=== PATIENT | female | born 1985 | race Caucasian/White ===

== ENCOUNTER 2024-02-17 09:27 | Outpatient (AMB) | payer OTHER, SELFPAY ==
--- NOTE | 2024-02-17 10:07 | MHC.PC.OV ---
Vital Signs 02/17/24 10:13 Height 5 ft 7 in Weight 253 lb BMI 39.6 BP 110/80 Blood Pressure Location Lt brachial Position Sitting Pulse 77 Pulse Source Pulse Oximeter Pulse Oximetry (%) 100 Oxygen Delivery Method Room Air Intake Visit Reasons: NPV- Requesting phy Intake Note: Pt is here today as a new patient to [facility] care and request a PE Is last menstrual period known: Yes Last menstrual period: 01/29/24 Allergies No Known Allergies Allergy (Verified 02/17/24 10:13) Medication List - Last Reconciled 02/17/24 by Cristal Reveles MD iodine ea miscellaneous levocetirizine (Xyzal) 5 mg PO DAILY milk thistle 300 mg PO DAILY Tobacco use date assessed: 02/17/24 Dental Screening Dental Screen Date: 02/17/24 Did you have a dental visit in the last 12 months?: Yes Did you have a dental problem in the last 6 months where you did not have access to dental care?: No Was dental information given to patient?: Patient has dentist HPI NPV- Requesting phy HPI Details 38-year-old lady, new to practice, here to establish care with a new PCP and for physical exam. She has no known medical history, except for seasonal allergies for which she takes Xyzal 5 mg once a day as needed. Her last Pap was in 2019 per patient came back normal. Has history of gallstones, status post cholecystectomy done in [place] in 2009 She has strong family history for breast cancer, sister was diagnosed at age 45 with breast cancer, and maternal aunt and paternal grandmother also had breast cancer. She states that she was tested and came back positive for the BRCA 1 gene. She has been getting yearly mammograms, last 1 was a year ago which came back negative. [facility] Medical History (Updated 02/18/24 @ 01:25 by Cristal Reveles MD) Obesity (BMI 35.0-39.9 without comorbidity) Elevated liver enzymes Family history of breast cancer in first degree relative BRCA1-associated protein-1 tumor predisposition syndrome Cervical cancer screening Myopia Seasonal allergies History of vitamin D deficiency Surgical History (Updated 02/17/24 @ 10:45 by Cristal Reveles MD) Hx laparoscopic cholecystectomy Family History (Updated 02/17/24 @ 10:55 by Cristal Reveles MD) Sister Breast cancer, Onset Age: 45 Maternal Aunt Breast cancer Paternal Grandmother Breast cancer Maternal Grandmother Thyroid cancer Skin cancer Father Thyroid disease Sister Goiter Brother Type 1 diabetes mellitus Brother Type 1 diabetes mellitus Social History Housing: Apartment Patient Tobacco Use Status: Never used Tobacco e-Cigarette/Vaping Use: Never Used service: No Current occupational status: employed Cognitive needs: No Hearing needs: No Vision needs: Yes Female Reproductive History Menstrual Date of last menstrual period: 01/29/24 control method: permanent sterilization Permanent Sterilization: Vasectomy Total pregnancies: 2 Full term: 2 Questionnaire PHQ-9 Over the last 2 weeks, how often have you been bothered by any of the following problems? 1. Little interest or pleasure in doing things: not at all 2. Feeling down, depressed, or hopeless: not at all 3. Trouble falling or staying asleep, or sleeping too much: not at all 4. Feeling tired or having little energy: several days 5. Poor appetite or overeating: not at all 6. Feeling bad about yourself - or that you are a failure or have let yourself or your family down: not at all 7. Trouble concentrating on things, such as reading the newspaper or watching television: not at all 8. Moving or speaking so slowly that other people could have noticed. Or the opposite - being so fidgety or restless that you have been moving around a lot more than usual: not at all 9. Thoughts that you would be better off or of hurting yourself in some way: not at all Total score: 1 Depression Screening Interpretation: Negative Depression Screening Done: Yes 89370 - PHQ-9 Billing: Yes Source: Developed by Drs. Hugo Vargas, Marya Martinez, Tremaine Huffman and colleagues, with an educational sendy from [employer]. Thrive Questionnaire Date Thrive assessed: 02/17/24 I am a: Patient What is your living situation today?: I have a steady place to live Within the past 12 months, did the food you bought not last and you didn't have the money to get more?: Never true Within the past 12 months, did you worry whether your food would run out before you got money to buy more?: Never true Do you have trouble paying for medicines?: No Do you have trouble getting transportation to medical appointments?: No Do you have trouble paying your heating and electricity bill?: No Do you have trouble taking care of your child, family member or friend?: No Do you have trouble with day-to-day activities such as bathing, preparing meals, shopping, managing finances, etc.?: No Are you currently unemployed and looking for a job?: No Are you interested in more education?: No THRIVE Score: 0 AUDIT C Alcohol Use Questionnaire (AUDIT-C) 1. How often do you have a drink containing alcohol?: Never 3. How often do you have six or more drinks on one occasion?: Never Total Score: 0 LENNOX-7 AMB Questionnaire LENNOX-7 Date LENNOX - 7 assessed: 02/17/24 Feeling nervous, anxious, or on edge: 0 = Not at all Not being able to stop or control worryin = Not at all Worrying too much about different things: 0 = Not at all Trouble relaxin = Not at all Being so restless that it is hard to sit still: 0 = Not at all Becoming easily annoyed or irritable: 0 = Not at all Feeling afraid as if something awful might happen: 0 = Not at all Total LENNOX-7 score (0-4 normal; 5-9 mild; 10-14 moderate; 15-21 severe): 0 Source: Developed by Drs. Hugo Vargas, Marya Martinez, Tremaine Huffman and colleagues, with an educational sendy from [employer]. LENNOX-7 Assessment Billing LENNOX-7 Assessment Tool: LENNOX-7 Assessment 43994 Review of Systems Const Denies body aches, Denies fatigue, Denies fever(s), Denies headache(s) and Denies weakness Eyes Denies change in vision and Reports requires corrective lenses ENT Denies dizziness, Denies headache(s), Denies nasal congestion, Denies nasal discharge and Denies sore throat Card Denies chest pain, Denies lightheadedness, Denies palpitations and Denies dyspnea Resp Denies chest congestion, Denies cough, Denies dyspnea and Denies wheezing GI Denies abdominal pain, Denies change in bowel habits and Denies heartburn Denies hematuria, Denies urinary frequency, Denies dysuria and Denies urinary urgency Musc Reports no additional complaints Skin/Breast Denies breast pain, Denies breast mass, Denies lesions and Denies rash Neuro Denies dizziness, Denies headache(s) and Denies weakness Psych Reports no additional complaints Endo Denies fatigue, Denies polydipsia, Denies polyuria and Denies palpitations Kraig/Lymph Denies easy bruising Aller/Immun Denies seasonal rhinorrhea and Denies wheezing Physical exam (Primary Care) Vital Signs: Last Vital Signs Pulse 77 02/17/24 10:13 BP 110/80 02/17/24 10:13 Pulse Ox 100 02/17/24 10:13 Oxygen Delivery Method Room Air 02/17/24 10:13 BMI result Body Mass Index 39.6 Tobacco/Smoking Status: Tobacco use Status Tobacco use date assessed 02/17/24 02/17/24 10:18 Patient Tobacco Use Status Never used Tobacco 02/17/24 10:18 e-Cigarette/Vaping Use Never Used 02/17/24 10:18 PHQ-9: PHQ-9 Score PHQ-9: Total score 1 02/17/24 10:46 Depression Screening Interpretation: Negative Thrive Assessment: Date of Thrive Assessment Date Thrive assessed 02/17/24 02/17/24 10:27 Const General: no acute distress and alert Nutritional Appearance: obese Orientation/consciousness: patient oriented x3 HENMT Head: Yes normocephalic and Yes atraumatic Ears: external ears normal, TM's normal bilaterally and EAC's normal General nose exam: Normal external nose present and No nasal discharge present Face and sinus: Yes face symmetric Mouth: Normal oral and palatal mucosa present, lip normal, tongue normal, oropharynx normal and moist mucous membranes Eyes General: appearance normal, both eyes and all related structures Eyelids: Yes eyelids normal Conjunctivae: conjunctivae normal Sclerae: sclerae normal Pupils: Equal, round and reactive pupils present EOM: EOMs intact bilaterally Neck Neck: Yes full ROM, Yes no lymphadenopathy and Yes supple Thyroid: Thyroid normal Chest Chest palpation & inspection: normal inspection of the chest Breast/axilla inspection: normal inspection of the breasts Breast/axilla palpation: normal palpation of the breasts Resp Effort & Inspection: normal respiratory effort and able to speak in complete sentences Auscultation: clear to auscultation bilaterally Cardio Rate: regular rate Rhythm: regular rhythm Heart sounds: S1 normal heart sound present and S2 normal heart sound present GI Palpation (GI): Soft to palpation, nontender, no guarding and no masses Auscultation: normal bowel sounds General: Yes no CVA tenderness Back/Spine/Pelvis Back: no CVA tenderness and No back tenderness Skin General skin exam: no rashes or lesions noted Neuro General: patient oriented x3, gait normal, moves all extremities, Normal light touch and pain sensation, no focal motor deficits and CN's II-XI intact bilaterally Cranial nerves: Yes Equal, round and reactive pupils present Cognition (Neuro): normal cognition Gait exam (Neuro): Normal gait present Motor exam (neuro): 5/5 motor strength present throughout Extrem General: Yes normal to inspection, Yes full ROM, Yes no joint enlargement, Yes no pedal edema and Yes normal gait Psych Appearance: grossly normal and well kempt Mental Status: mental status grossly normal Speech and movement: Normal speech and movement present Affect: normal affect Attitude: cooperative Thought process: Normal thought process present Thought content: Normal thought content present Assessment and Plan Assessment & Plan (1) Annual visit for general adult medical examination with abnormal findings: Code(s): Z00.01 - Encounter for general adult medical examination with abnormal findings Plan: Will check appropriate labs. Recommended dental visit every 6 months and regular eye exams, at least every 2 years, currently sees Dr. Oneal. Take adequate calcium in diet and vitamin-D 3 at 2000 IU per cap once a day, in addition to weight-bearing exercises to help maintain good muscle tone and weight control. Instructed to do self-breast exam, and and ordered screening mammogram, has patient has strong family history for breast cancer and is BRCA 1 positive pain.. Up-to-date with her vaccines (2) History of vitamin D deficiency: Code(s): Z86.39 - Personal history of other endocrine, nutritional and metabolic disease Plan: Will check vitamin-D level (3) Seasonal allergies: Code(s): J30.2 - Other seasonal allergic rhinitis Plan: Currently taking Xyzal 5 mg 1 tablet daily as needed for seasonal allergies (4) Myopia: Comment: Sees Dr. Oneal Code(s): H52.10 - Myopia, unspecified eye Qualifiers: Laterality: bilateral Qualified Code(s): H52.13 - Myopia, bilateral Plan: Currently followed by Dr. Oneal (5) Cervical cancer screening: Code(s): Z12.4 - Encounter for screening for malignant neoplasm of cervix Plan: Referred to [facility] for her routine Pap and pelvic exam (6) BRCA1-associated protein-1 tumor predisposition syndrome: Code(s): Z15.01 - Genetic susceptibility to malignant neoplasm of breast; Z15.02 - Genetic susceptibility to malignant neoplasm of ovary; Z15.09 - Genetic susceptibility to other malignant neoplasm Plan: Screening mammogram ordered, referral to Oncology for further testing (7) Family history of breast cancer in first degree relative: Code(s): Z80.3 - Family history of malignant neoplasm of breast (8) Elevated liver enzymes: Code(s): R74.8 - Abnormal levels of other serum enzymes Plan: Ordered a comprehensive metabolic panel, currently taking milk thistle (9) Obesity (BMI 35.0-39.9 without comorbidity): Code(s): E66.9 - Obesity, unspecified Plan: Discussed need to increase activity and weight reduction. Mediterranean diet is a healthy diet that helps, limit food high in fat, sugar, and calories. Eat slowly, pay attention to portion sizes, plan your meals ahead of time, start regular physical activity, at least 150 minutes of moderate intensity exercise, or 90 minutes per week of vigorous exercise. Keeping a food diary, tracking what you eat and your physical activity can help assess what improvements you can make. There are many health problems associated with being overweight/obese, so it is important to improve your diet and exercise. Orders: Orders Complete Blood Count Auto Diff 02/17/24 J30.2 - Other seasonal allergic rhinitis, R74.8 - Abnormal levels of other serum enzymes, Z15.01 - Genetic susceptibility to malignant neoplasm of breast, Z15.02 - Genetic susceptibility to malignant neoplasm of ovary, Z15.09 - Genetic susceptibility to other malignant neoplasm, Z80.3 - Family history of malignant neoplasm of breast, Z86.39 - Personal history of other endocrine, nutritional and metabolic disease Lipid Panel 02/17/24 J30.2 - Other seasonal allergic rhinitis, R74.8 - Abnormal levels of other serum enzymes, Z15.01 - Genetic susceptibility to malignant neoplasm of breast, Z15.02 - Genetic susceptibility to malignant neoplasm of ovary, Z15.09 - Genetic susceptibility to other malignant neoplasm, Z80.3 - Family history of malignant neoplasm of breast, Z86.39 - Personal history of other endocrine, nutritional and metabolic disease Vitamin D 25-OH Total 02/17/24 J30.2 - Other seasonal allergic rhinitis, R74.8 - Abnormal levels of other serum enzymes, Z15.01 - Genetic susceptibility to malignant neoplasm of breast, Z15.02 - Genetic susceptibility to malignant neoplasm of ovary, Z15.09 - Genetic susceptibility to other malignant neoplasm, Z80.3 - Family history of malignant neoplasm of breast, Z86.39 - Personal history of other endocrine, nutritional and metabolic disease TSH reflex Free T4 02/17/24 J30.2 - Other seasonal allergic rhinitis, R74.8 - Abnormal levels of other serum enzymes, Z15.01 - Genetic susceptibility to malignant neoplasm of breast, Z15.02 - Genetic susceptibility to malignant neoplasm of ovary, Z15.09 - Genetic susceptibility to other malignant neoplasm, Z80.3 - Family history of malignant neoplasm of breast, Z86.39 - Personal history of other endocrine, nutritional and metabolic disease Comprehensive Mary D. Panel Fast 02/17/24 J30.2 - Other seasonal allergic rhinitis, R74.8 - Abnormal levels of other serum enzymes, Z15.01 - Genetic susceptibility to malignant neoplasm of breast, Z15.02 - Genetic susceptibility to malignant neoplasm of ovary, Z15.09 - Genetic susceptibility to other malignant neoplasm, Z80.3 - Family history of malignant neoplasm of breast, Z86.39 - Personal history of other endocrine, nutritional and metabolic disease Referrals [facility] Referral Z00.01 - Encounter for general adult medical examination with abnormal findings, Z12.4 - Encounter for screening for malignant neoplasm of cervix, Z15.01 - Genetic susceptibility to malignant neoplasm of breast, Z15.02 - Genetic susceptibility to malignant neoplasm of ovary, Z15.09 - Genetic susceptibility to other malignant neoplasm Hematology & Oncology Referral Z15.01 - Genetic susceptibility to malignant neoplasm of breast, Z15.02 - Genetic susceptibility to malignant neoplasm of ovary, Z15.09 - Genetic susceptibility to other malignant neoplasm, Z80.3 - Family history of malignant neoplasm of breast Coding Level of Care Code New Pt Prev Care 18-39yr([id number] Diagnoses Annual visit for general adult medical examination with abnormal findings Z00.01 History of vitamin D deficiency Z86.39 Seasonal allergies J30.2 Myopia of both eyes H52.13 Laterality: bilateral Cervical cancer screening Z12.4 BRCA1-associated protein-1 tumor predisposition syndrome Z15.01; Z15.02; Z15.09 Family history of breast cancer in first degree relative Z80.3 Elevated liver enzymes R74.8 Obesity (BMI 35.0-39.9 without comorbidity) E66.9 Additional Codes LENNOX-7 Assessment Billing - LENNOX-7 Assessment Tool: LENNOX-7 Assessment [id number] ([id number])
[2024-02-17 10:13] VITALS: BP 110/80; PULSE 77; O2SAT 100; BMI 39.6
== END 2024-02-17 11:09 | disposition home or self-care (01) ==
PROVIDERS: PCP Internal Medicine; Visit Provider Internal Medicine
DX: Z00.00 Encounter for general adult medical examination without abnormal findings (principal); Z86.39 Personal history of other endocrine, nutritional and metabolic disease; E66.9 Obesity, unspecified; Z68.39 Body mass index [BMI] 39.0-39.9, adult; J30.2 Other seasonal allergic rhinitis; H52.13 Myopia, bilateral; Z15.01 Genetic susceptibility to malignant neoplasm of breast; Z15.02 Genetic susceptibility to malignant neoplasm of ovary; Z15.09 Genetic susceptibility to other malignant neoplasm; Z80.3 Family history of malignant neoplasm of breast; R74.8 Abnormal levels of other serum enzymes
CPT/HCPCS: 99385

== ENCOUNTER 2024-02-18 08:39 | Outpatient (REF) | payer OTHER, SELFPAY ==
[2024-02-18 10:11] LABS: MANUAL DIFF FLAG NO
[2024-02-18 10:26] LABS: Basophils Absolute Auto 0.1 X10*3/uL (0.0-0.2); Eosinophils Absolute Auto 0.3 X10*3/uL (0.0-0.4); Eosinophils Percent Auto 4.1 % (0-4); Hematocrit 40.1 % (37.0-47.0); Imm Gran Abs Auto 0.02 X10*3/uL (0.00-0.03); Imm Gran Pct Auto 0.3 % (0.0-0.4); Lymphocytes Absolute Auto 1.8 X10*3/uL (1.2-4.9); Lymphocytes Percent Auto 26.5 % (20-40); Mean Corpuscular HGB Conc 32.4 g/dl (31.0-35.0); Mean Corpuscular Hemoglobin 28.6 pg (27.0-33.0); Mean Corpuscular Volume 88.1 fL (80.0-98.0); Mean Platelet Volume 10.7 fL (9.4-12.3); Monocytes Absolute Auto 0.6 X10*3/uL (0.1-1.2); Monocytes Percent Auto 8.4 % (2-11); Neutrophils Absolute Auto 4.1 x10*3/uL (2.0-8.3); Neutrophils Percent Auto 59.7 % (45-73); Platelet Count 335 X10*3/uL (160-400); Red Blood Count 4.55 X10*6/uL (4.20-5.50); Red Cell Distribution Width 14.2 % (11.0-16.0); White Blood Count 6.9 X10*3/uL (4.8-10.8)
[2024-02-18 11:20] LABS: Alanine Aminotransferase 21 U/L (0-31); Albumin Level 3.6 g/dL (3.5-5.0); Alkaline Phosphatase 61 U/L (39-117); Anion Gap 10 (12-20); Aspartate Amino Transferase 14 U/L (5-31); Bilirubin Total 0.6 mg/dL (0.0-1.0); Blood Urea Nitrogen 9 mg/dL (9-16); Calcium 9.1 mg/dL (8.4-10.2); Carbon Dioxide 24 mmol/L (22-29); Chloride 109 mmol/L (96-108); Cholesterol 153 mg/dL (<200); Estimated Glomerular Filt Rate > 60; Glucose Fasting 86 mg/dL (60-99); HDL Cholesterol 53 mg/dL (>40); LDL Cholesterol Calculated 87 mg/dL (<100); Potassium 4.3 mmol/L (3.3-5.1); Sodium 139 mmol/L (135-145); TSH reflex Free T4 2.15 uIU/mL (0.32-4.0); Total Protein 7.1 g/dL (6.5-8.0); Triglycerides 69 mg/dL (<150)
== END 2024-02-18 08:40 | disposition home or self-care (01) ==
LOC: HO.HMGCLDS 08:39
PROVIDERS: PCP Internal Medicine; Visit Provider Internal Medicine
DX: R74.8 Abnormal levels of other serum enzymes (principal); J30.2 Other seasonal allergic rhinitis; Z86.39 Personal history of other endocrine, nutritional and metabolic disease; Z80.3 Family history of malignant neoplasm of breast; Z15.01 Genetic susceptibility to malignant neoplasm of breast; Z15.02 Genetic susceptibility to malignant neoplasm of ovary; Z15.09 Genetic susceptibility to other malignant neoplasm
CPT/HCPCS: 36415; 80053; 80061; 82306; 84443; 85025

== ENCOUNTER 2024-03-23 09:01 | Outpatient (REF) | payer OTHER, SELFPAY ==
[2024-03-26 07:39] LABS: TS Negative Control Passed; TS Panel A 1; TS Panel B 2; TS Positive Control Passed; TSpotTB Negative (Negative)
== END 2024-03-23 09:02 | disposition home or self-care (01) ==
LOC: HO.HMGCLDS 09:01
PROVIDERS: PCP Internal Medicine; Visit Provider Internal Medicine
DX: Z11.1 Encounter for screening for respiratory tuberculosis (principal)
CPT/HCPCS: 36415; 86481

== ENCOUNTER 2024-06-01 10:22 | Outpatient (AMB) | payer OTHER, SELFPAY ==
--- NOTE | 2024-06-01 10:24 | MHC.OFFVIS ---
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 She used to go to [facility] in [place] but they closed. She is 100% certain that she had her negative Pap smear with negative HPV 2 years ago in 2021 around that time she also got tested for the BRCA1 gene and found out that she is positive she had that done because her sister who is 45 years old at the time was diagnosed with breast cancer though she was BRCA negative. She has an appointment tomorrow at [facility] for a alvarez discussion about options and further screening though she has been getting her yearly mammograms and they have been normal she says on the last mammogram they told her her breasts were fatty not dense. She has absolutely no worries about STDs and declines all testing her has a vasectomy so she does not need control she gets regular periods and they are little crampy but nothing too bad and she does not keep track exactly to the date but they come every month. She walks for exercise she has 2 children ages 7 and 11 both delivered vaginally 1 at [facility] and 1 at [facility]. 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, [facility] Medical History (Updated 06/01/24 @ 11:28 by Sherley Davis CNM) Obesity (BMI 35.0-39.9 without comorbidity) Elevated liver enzymes Family history of breast cancer in first degree relative BRCA1-associated protein-1 tumor predisposition syndrome Cervical cancer screening Myopia Seasonal allergies History of vitamin D deficiency Surgical History Hx laparoscopic cholecystectomy Family History Sister Breast cancer, Onset Age: 45 Maternal Aunt Breast cancer Paternal Grandmother Breast cancer Maternal Grandmother Thyroid cancer Skin cancer Father Thyroid disease Sister Goiter Brother Type 1 diabetes mellitus Brother Type 1 diabetes mellitus Social History Housing: Apartment Patient Tobacco Use Status: Never used Tobacco e-Cigarette/Vaping Use: Never Used service: No Current occupational status: employed Cognitive needs: No Hearing needs: No Vision needs: Yes Female Reproductive History Menstrual Age of Menarche: 13 Duration of menses: 3-5 days Date of last menstrual period: 05/11/24 control method: none and other (vasectomy) Total pregnancies: 2 Full term: 2 Date of last pap smear: 12/11/21 (negative(per patient)) History of abnormal pap smear: No Physical Exam Vital Signs: Last Vital Signs BP 118/80 06/01/24 10:28 BMI result Body Mass Index 39.6 Const General: healthy appearing, comfortable, no acute distress, well developed and alert Nutritional Appearance: average body habitus Orientation/consciousness: patient oriented x3 Limitations: no limitations HEENT Head: Yes normocephalic Neck Neck: Yes normal visual inspection Thyroid: Thyroid normal Chest Other: Breasts are large and pendulous no masses palpated no skin dimpling no peau d'orange. Chest palpation & inspection: normal inspection of the chest Breast/axilla inspection: normal inspection of the breasts and normal inspection of the axillae Breast/axilla palpation: normal palpation of the breasts and normal palpation of the axillae Resp Effort & Inspection: normal respiratory effort GI Inspection: Yes normal to inspection, No Abdominal wall edema and No distended Palpation (GI): Soft to palpation and nontender Other: External exam within normal limits vagina pink and moist multiparous cervix pink moist smooth very healthy appearing mucus uterus is small anteverted mobile nontender adnexa nontender not enlarged fair tone with Kegel explained Kegel's quite in some detail and urged doing them several times a day and discussed rationale and issues that contribute to weakening of muscle. General: Yes bladder normal to palpation External Female Exam: normal external appearance and normal appearance of the urethra Speculum Exam - Vagina: normal appearance of the vagina, normal palpation and normal vaginal discharge Speculum Exam - Cervix: normal appearance of the cervix, normal palpation and nontender Bimanual exam- vagina & uterus: normal bimanual exam, normal palpation, uterine size normal, bladder normal to palpation, consistency normal, normal palpation, uterine mobility normal, uterine shape normal, No Cervical tenderness present, non-tender and no cervical motion tenderness Bimanual Exam- Adnexa, other: normal adnexae, no masses, normal and No adnexal tenderness Neuro General: patient oriented x3 Assessment & Plan Assessment & Plan (1) Obesity (BMI 35.0-39.9 without comorbidity): Code(s): E66.9 - Obesity, unspecified Category: Medical (2) Family history of breast cancer in first degree relative: Code(s): Z80.3 - Family history of malignant neoplasm of breast Category: Medical (3) BRCA1-associated protein-1 tumor predisposition syndrome: Code(s): Z15.01 - Genetic susceptibility to malignant neoplasm of breast; Z15.02 - Genetic susceptibility to malignant neoplasm of ovary; Z15.09 - Genetic susceptibility to other malignant neoplasm Category: Medical (4) Cervical cancer screening: Comment: Patient is 100% sure she had negative Pap with negative HPV in 2021 and has access to the results on her phone. Code(s): Z12.4 - Encounter for screening for malignant neoplasm of cervix Category: Medical Plan -----Discussed in this visit the following: healthy balanced diet, regular and consistent exercise, getting recommended health screens, doing the best she can for her particular health concerns, kegel exercises, pap smear screening and followup recommendations, mammography screening and SBE, normal changes in cycles in her life stage--- .---I Had the patient and demonstrate a Kegel contraction at the end of the exam, ordered in order to explain a Kegel exercise, and instructed the patient on doing the same exercises several times a day with increasing strength each time. One useful to is to imagine pursestring around the vagina and pulling it tight and upwards as if raising the vagina, or imagining that her tight muscles are on the 1st floor and she is trying to pull them up to the 5th floor and then slowly letting them go down. To try to do these several times a day but focus on the quality and the strength of the exercises more than the quantity, and tried isolate just those muscles and not involve other body parts. She will be having a full discussion at [facility] [place] next week or tomorrow, about her positive brca 1 gene and what other screening would be recommended for her. She is probably going to bring her sister with her ( who had the breast cancer). Coding Level of Care Code New Pt Prev Care 18-39yr([id number] Diagnoses Obesity (BMI 35.0-39.9 without comorbidity) E66.9 Family history of breast cancer in first degree relative Z80.3 BRCA1-associated protein-1 tumor predisposition syndrome Z15.01; Z15.02; Z15.09 Cervical cancer screening Z12.4
[2024-06-01 10:28] VITALS: BP 118/80; BMI 39.6
== END 2024-06-01 11:22 | disposition home or self-care (01) ==
LOC: HO.HWSM 10:22
PROVIDERS: PCP Internal Medicine; Visit Provider Advanced Practice Midwife
DX: Z01.419 Encounter for gynecological examination (general) (routine) without abnormal findings (principal); E66.9 Obesity, unspecified; Z80.3 Family history of malignant neoplasm of breast
CPT/HCPCS: 99385

== ENCOUNTER → 2024-06-01 10:22 | Outpatient (BNVA) | payer OTHER, SELFPAY | PROVIDERS: PCP Internal Medicine; Visit Provider Advanced Practice Midwife | DX: Z12.4 Encounter for screening for malignant neoplasm of cervix (principal); E66.9 Obesity, unspecified; Z68.39 Body mass index [BMI] 39.0-39.9, adult; Z80.3 Family history of malignant neoplasm of breast; Z15.01 Genetic susceptibility to malignant neoplasm of breast; Z15.02 Genetic susceptibility to malignant neoplasm of ovary | CPT/HCPCS: 99385 ==

== ENCOUNTER 2025-03-02 08:18 | Outpatient (AMB) | payer OTHER, SELFPAY ==
--- OUTSIDE RECORDS SUMMARY | 2025-03-02 08:36 | XMS_ITS | Patient Health Record ---
[facility] Organization [facility] Address [address] [place] [address] [phone] Support Name Relationship Address Phone Brinda Stoddard Guarantor Unknown Unavailable REASON FOR REFERRAL No Information PLAN OF TREATMENT No Information Insurance Providers Payer Name Payer Address Payer Phone Subscriber Number Group Number Insured Name Patient Relationship to Insured Coverage Start Date Coverage End Date [facility] [address] [place], [place] [id number] Brinda Stoddard Self - patient is the insured 1
--- OUTSIDE RECORDS SUMMARY | 2025-03-02 08:36 | XMS_ITS | Clinical Summary ---
Author Organization [facility] [place] [address] Care Team Providers Care Fire Protection Engineering Technician Name Role Phone Cam Harvey MD Primary Care Provider [phone] Social History Tobacco Use Types Packs/Day Years Used Date Smoking Tobacco: Never Assessed Comments Unknown Sex and Gender Information Value Date Recorded Sex Assigned at Not on file Legal Sex Female 12:11 PM EST Gender Identity Not on file Sexual Orientation Not on file Plan of Treatment Health Maintenance Due Date Last Done Comments Hepatitis B Vaccines (1 of 3 - 19+ 3-dose series) 2005 Cervical Cancer Screening: P ap Smear 2007 Depression Screening 10/07/2022 HIV Screening 10/07/2022 Hepatitis C Screening 10/07/2022 Social Influencers of Health Screening 10/07/2022 COVID-19 Vaccine (2023-2 5 season) 2024 Influenza Vaccine (Season Ended) 2025 08/01/20 16 DTaP,Tdap,and Td Vaccines (2 - Td or Tdap) 01/15/2027 01/15/2017 HIB Vaccines Aged Out No longer eligi ble based on patient's age to complete this topic HPV Vaccines Aged Out No longer eligi ble based on patient's age to complete this topic Hepatitis A Vaccines Aged Out No long er eligible based on patient's age to complete this topic IPV Vaccines Aged Out No longer eligi ble based on patient's age to complete this topic MMR Vaccines Aged Out No longer eligi ble based on patient's age to complete this topic Meningococcal ACWY Vaccine Aged Out N o longer eligible based on patient's age to complete this topic Meningococcal B Vaccine Aged Out No l onger eligible based on patient's age to complete this topic Pneumococcal Vaccine: Pediat rics (0 to 5 Years) and At-Risk Patients (6 to 64 Years) Aged Out No longer eligi ble based on patient's age to complete this topic RSV Immunization Patients Un abdirahman 20 months Aged Out No longer eligible b ased on patient's age to complete this topic Varicella Vaccines Aged Out No longer eligible based on patient's age to complete this topic Care Teams Fire Protection Engineering Technician Relationship Specialty Start Date End Date Cam Harvey MD [address] [place] [address] [address] [place] PCP - General Internal Medicine 08/28/16
--- NOTE | 2025-03-02 08:44 | A.OFFPC_ITS ---
Vital Signs 03/02/25 08:49 Height 5 ft 7 in Weight 258 lb BMI 40.4 BP 114/72 Blood Pressure Location Rt brachial Position Sitting Respiration 16 Pulse 67 Pulse Source Pulse Oximeter Temp 98.3 F Temp Source Oral Pulse Oximetry (%) 100 Oxygen Delivery Method Room Air Intake Visit Reasons: Annual PE Intake Note: Pt is here today for her PE: Is last menstrual period known: Yes Last menstrual period: 02/17/25 Allergies No Known Allergies Allergy (Verified 03/05/25 03:28) Medication List - Last Reconciled 03/05/25 by Cristal Reveles MD cholecalciferol (vitamin D3) 10 mcg PO DAILY levocetirizine (Xyzal) 5 mg PO DAILY Tobacco use date assessed: 03/02/25 Dental Screening Dental Screen Date: 03/02/25 Did you have a dental visit in the last 12 months?: Yes Did you have a dental problem in the last 6 months where you did not have access to dental care?: No Was dental information given to patient?: Patient has dentist HPI Annual PE HPI Details 31-year-old lady with history of positiv e BRCA1 gene, with strong family history for breast cancer,, has seasonal allergies,, here today for physical exam. She is currently being followed by medical oncology clinic at [facility] and was supposed to get an MRI last October in a mammogram for March of this year but patient states that have been rescheduling her appointments. She was seen by [facility] for her routine Pap and pelvic exam last year, and was referred to Gynecologic Oncology to discuss bilateral salpingo-oophorectomy, and advised yearly dermatologic screening for melanoma. She has been staying active, exercises regularly at least 2 to 3 times a week and has been following a healthy diet. [facility] Medical History (Updated 03/02/25 @ 17:43 by Cristal Reveles MD) Obesity (BMI 35.0-39.9 without comorbidity) Elevated liver enzymes Family history of breast cancer in first degree relative BRCA1-associated protein-1 tumor predisposition syndrome Cervical cancer screening Myopia Seasonal allergies History of vitamin D deficiency Surgical History Hx laparoscopic cholecystectomy Family History Sister Breast cancer, Onset Age: 45 Maternal Aunt Breast cancer Paternal Grandmother Breast cancer Maternal Grandmother Thyroid cancer Skin cancer Father Thyroid disease Sister Goiter Brother Type 1 diabetes mellitus Brother Type 1 diabetes mellitus Social History Housing: Apartment Patient Tobacco Use Status: Never used Tobacco e-Cigarette/Vaping Use: Never Used service: No Current occupational status: employed Cognitive needs: No Hearing needs: No Vision needs: Yes Female Reproductive History Menstrual Age of Menarche: 13 Date of last menstrual period: 02/17/25 Questionnaire PHQ-9 Over the last 2 weeks, how often have you been bothered by any of the following problems? 1. Little interest or pleasure in doing things: not at all 2. Feeling down, depressed, or hopeless: not at all 3. Trouble falling or staying asleep, or sleeping too much: not at all 4. Feeling tired or having little energy: several days 5. Poor appetite or overeating: not at all 6. Feeling bad about yourself - or that you are a failure or have let yourself or your family down: not at all 7. Trouble concentrating on things, such as reading the newspaper or watching television: several days 8. Moving or speaking so slowly that other people could have noticed. Or the opposite - being so fidgety or restless that you have been moving around a lot more than usual: not at all 9. Thoughts that you would be better off or of hurting yourself in some way: not at all Total score: 2 Depression Screening Interpretation: Negative Depression Screening Done: Yes 44295 - PHQ-9 Billing: Yes Source: Developed by Drs. Hugo Vargas, Marya Martinez, Tremaine Huffman and colleagues, with an educational sendy from [employer]. Thrive Questionnaire Date Thrive assessed: 02/23/25 I am a: Patient What is your living situation today?: I have a steady place to live Within the past 12 months, did the food you bought not last and you didn't have the money to get more?: Never true Within the past 12 months, did you worry whether your food would run out before you got money to buy more?: Never true Do you have trouble paying for medicines?: No Do you have trouble getting transportation to medical appointments?: No Do you have trouble paying your heating and electricity bill?: No Do you have trouble taking care of your child, family member or friend?: No Do you have trouble with day-to-day activities such as bathing, preparing meals, shopping, managing finances, etc.?: No Are you currently unemployed and looking for a job?: No Are you interested in more education?: No Please select the resources that you would like help with: None Currently or been in a relationship where the following occur: No concerns reported THRIVE Score: 0 AUDIT C Alcohol Use Questionnaire (AUDIT-C) 1. How often do you have a drink containing alcohol?: Never 3. How often do you have six or more drinks on one occasion?: Never Total Score: 0 LENNOX-7 AMB Questionnaire LENNOX-7 Date LENNOX - 7 assessed: 03/02/25 Feeling nervous, anxious, or on edge: 0 = Not at all Not being able to stop or control worryin = Not at all Worrying too much about different things: 0 = Not at all Trouble relaxin = Not at all Being so restless that it is hard to sit still: 0 = Not at all Becoming easily annoyed or irritable: 0 = Not at all Feeling afraid as if something awful might happen: 0 = Not at all Total LENNOX-7 score (0-4 normal; 5-9 mild; 10-14 moderate; 15-21 severe): 0 Source: Developed by Drs. Hugo Vargas, Marya Martinez, Tremaine Huffman and colleagues, with an educational sendy from [employer]. Review of Systems Const Denies body aches, Denies fatigue, Denies fever(s), Denies headache(s) and Denies weakness Eyes Denies change in vision and Reports requires corrective lenses ENT Denies dizziness, Denies headache(s), Denies nasal congestion, Denies nasal discharge and Denies sore throat Card Denies chest pain, Denies lightheadedness, Denies palpitations and Denies dyspnea Resp Denies chest congestion, Denies cough, Denies dyspnea and Denies wheezing GI Denies abdominal pain, Denies change in bowel habits and Denies heartburn Denies hematuria, Denies urinary frequency, Denies dysuria and Denies urinary urgency Musc Reports no additional complaints Skin/Breast Denies breast pain, Denies breast mass, Denies lesions and Denies rash Neuro Denies dizziness, Denies headache(s) and Denies weakness Psych Reports no additional complaints Endo Denies fatigue, Denies polydipsia, Denies polyuria and Denies palpitations Kraig/Lymph Denies easy bruising Aller/Immun Reports seasonal rhinorrhea and Denies wheezing Physical exam (Primary Care) Vital Signs: Last Vital Signs Temp 98.3 F 03/02/25 08:49 Pulse 67 03/02/25 08:49 Resp 16 03/02/25 08:49 BP 114/72 03/02/25 08:49 Pulse Ox 100 03/02/25 08:49 Oxygen Delivery Method Room Air 03/02/25 08:49 BMI result Body Mass Index 40.4 Tobacco/Smoking Status: Tobacco use Status Tobacco use date assessed 03/02/25 03/02/25 08:47 Patient Tobacco Use Status Never used Tobacco 03/02/25 08:47 e-Cigarette/Vaping Use Never Used 03/02/25 08:47 PHQ-9: PHQ-9 Score PHQ-9: Total score 2 03/02/25 17:46 Depression Screening Interpretation: Negative Thrive Assessment: Date of Thrive Assessment Date Thrive assessed 02/23/25 03/02/25 08:47 Currently or been in a relationship where the following occur: No concerns reported Const General: no acute distress and alert Nutritional Appearance: obese Orientation/consciousness: patient oriented x3 HENMT Head: Yes normocephalic Ears: external ears normal, TM's normal bilaterally and EAC's normal General nose exam: Normal external nose present and No nasal discharge present Face and sinus: Yes face symmetric Mouth: Normal oral and palatal mucosa present, lip normal, tongue normal, oropharynx normal and moist mucous membranes Eyes General: appearance normal, both eyes and all related structures Eyelids: Yes eyelids normal Conjunctivae: conjunctivae normal Sclerae: sclerae normal Pupils: Equal, round and reactive pupils present EOM: EOMs intact bilaterally Neck Neck: Yes full ROM, Yes no lymphadenopathy and Yes supple Thyroid: Thyroid normal Chest Chest palpation & inspection: normal inspection of the chest Breast/axilla inspection: normal inspection of the breasts Breast/axilla palpation: normal palpation of the breasts Resp Effort & Inspection: normal respiratory effort and able to speak in complete sentences Auscultation: clear to auscultation bilaterally Cardio Rate: regular rate Rhythm: regular rhythm Heart sounds: S1 normal heart sound present and S2 normal heart sound present GI Palpation (GI): Soft to palpation, nontender, no guarding and no masses Auscultation: normal bowel sounds General: Yes no CVA tenderness Back/Spine/Pelvis Back: no CVA tenderness and No back tenderness Skin General skin exam: no rashes or lesions noted Neuro General: patient oriented x3, gait normal, moves all extremities, Normal light touch and pain sensation, no focal motor deficits and CN's II-XI intact bilaterally Cranial nerves: Yes Equal, round and reactive pupils present Cognition (Neuro): normal cognition Gait exam (Neuro): Normal gait present Motor exam (neuro): 5/5 motor strength present throughout Extrem General: Yes normal to inspection, Yes full ROM, Yes no joint enlargement, Yes no pedal edema and Yes normal gait Psych Appearance: grossly normal and well kempt Mental Status: mental status grossly normal Speech and movement: Normal speech and movement present Affect: normal affect Attitude: cooperative Thought process: Normal thought process present Thought content: Normal thought content present Coding Level of Care Code Est Pt Prev Care 18-39y(34327) Diagnoses Annual visit for general adult medical examination with abnormal findings Z00.01 Obesity (BMI 35.0-39.9 without comorbidity) E66.9 Elevated liver enzymes R74.8 BRCA1-associated protein-1 tumor predisposition syndrome Z15.01; Z15.02; Z15.09 History of vitamin D deficiency Z86.39 Additional Codes PHQ-9 - 70485 - PHQ-9 Billing: Yes ([id number]) Assessment & Plan Assessment & Plan (1) Annual visit for general adult medical examination with abnormal findings: Code(s): Z00.01 - Encounter for general adult medical examination with abnormal findings Plan: Will check appropriate labs. Continue with regular dental visit every 6 months and regular eye exams, at least every 2 years. Take adequate calcium in diet and vitamin-D 3 at 2000 IU per cap once a day, in addition to weight-bearing exercises to help maintain good muscle tone and weight control. Instructed to do self-breast exam, and continue with regular mammogram and alternating breast MRI screenings per her oncologist she sees [facility] for her routine Pap and pelvic exam and has been referred to Surgical Oncology for possible prophylactic BSO (2) Obesity (BMI 35.0-39.9 without comorbidity): Code(s): E66.9 - Obesity, unspecified Category: Medical Plan: . Recommended focusing on improving health instead of dieting. Mediterranean diet is a healthy diet that helps, limit food high in fat, sugar, and calories. Eat slowly, pay attention to portion sizes, plan your meals ahead of time, start regular physical activity, at least 150 minutes of moderate intensity exercise, or 90 minutes per week of vigorous exercise. (3) Elevated liver enzymes: Code(s): R74.8 - Abnormal levels of other serum enzymes Category: Medical Plan: Ordered liver enzyme check (4) BRCA1-associated protein-1 tumor predisposition syndrome: Comment: BRCA1 [id number] del heterozygous pathogenic variant-seen by Dr Dale Pierre at [facility],, was told that she is at an increased risk for developing breast cancer, ovarian cancer, pancreatic cancer, and melanoma Code(s): Z15.01 - Genetic susceptibility to malignant neoplasm of breast; Z15.02 - Genetic susceptibility to malignant neoplasm of ovary; Z15.09 - Genetic guardado sceptibility to other malignant neoplasm Category: Medical Plan: Recommended by to have MRI of the breast bilateral with and without contrast every year, done October 2024, and for another mammogram scheduled for March 2025. Recommendation is to have increased surveillance in the form of MRI of the breast annually alternating with mammogram every six-months, if undecided about risk reducing mastectomy. She also has of mood for to Gynecologic Oncology for prophylactic BSO . However, patient would like to be referred to either [facility]in or Robert Isbell for a 2nd opinion, as she is unsatisfied with the care that she has been getting at [facility]. (5) History of vitamin D deficiency: Code(s): Z86.39 - Personal history of other endocrine, nutritional and metabolic disease Category: Medical Plan: Will check vitamin-D level Orders: Orders TSH reflex Free T4 03/02/25 E66.9 - Obesity, unspecified, R74.8 - Abnormal levels of other serum enzymes, Z00.01 - Encounter for general adult medical examination with abnormal findings, Z15.01 - Genetic susceptibility to malignant neoplasm of breast, Z15.02 - Genetic susceptibility to malignant neoplasm of ovary, Z15.09 - Genetic susceptibility to other malignant neoplasm, Z86.39 - Personal history of other endocrine, nutritional and metabolic disease Vitamin D 25-OH Total 03/02/25 E66.9 - Obesity, unspecified, R74.8 - Abnormal levels of other serum enzymes, Z00.01 - Encounter for general adult medical examination with abnormal findings, Z15.01 - Genetic susceptibility to malignant neoplasm of breast, Z15.02 - Genetic susceptibility to malignant neoplasm of ovary, Z15.09 - Genetic susceptibility to other malignant neoplasm, Z86.39 - Personal history of other endocrine, nutritional and metabolic disease Lipid Panel 03/02/25 E66.9 - Obesity, unspecified, R74.8 - Abnormal levels of other serum enzymes, Z00.01 - Encounter for general adult medical examination with abnormal findings, Z15.01 - Genetic susceptibility to malignant neoplasm of breast, Z15.02 - Genetic susceptibility to malignant neoplasm of ovary, Z15.09 - Genetic susceptibility to other malignant neoplasm, Z86.39 - Personal history of other endocrine, nutritional and metabolic disease Thyroid Peroxidase Antibodies 03/02/25 E66.9 - Obesity, unspecified, R74.8 - Abnormal levels of other serum enzymes, Z00.01 - Encounter for general adult medical examination with abnormal findings, Z15.01 - Genetic susceptibility to malignant neoplasm of breast, Z15.02 - Genetic susceptibility to malignant neoplasm of ovary, Z15.09 - Genetic susceptibility to other malignant neoplasm, Z86.39 - Personal history of other endocrine, nutritional and metabolic disease Alanine Aminotransferase 03/02/25 E66.9 - Obesity, unspecified, R74.8 - Abnormal levels of other serum enzymes, Z00.01 - Encounter for general adult medical examination with abnormal findings, Z15.01 - Genetic susceptibility to malignant neoplasm of breast, Z15.02 - Genetic susceptibility to malignant neoplasm of ovary, Z15.09 - Genetic susceptibility to other malignant neoplasm, Z86.39 - Personal history of other endocrine, nutritional and metabolic disease Aspartate Amino Transferase 03/02/25 E66.9 - Obesity, unspecified, R74.8 - Abnormal levels of other serum enzymes, Z00.01 - Encounter for general adult medical examination with abnormal findings, Z15.01 - Genetic susceptibility to malignant neoplasm of breast, Z15.02 - Genetic susceptibility to malignant neoplasm of ovary, Z15.09 - Genetic susceptibility to other malignant neoplasm, Z86.39 - Personal history of other endocrine, nutritional and metabolic disease Referrals Dermatology Referral Z12.83 - Encounter for screening for malignant neoplasm of skin, Z15.01 - Genetic susceptibility to malignant neoplasm of breast, Z15.02 - Genetic susceptibility to malignant neoplasm of ovary, Z15.09 - Genetic susceptibility to other malignant neoplasm
[2025-03-02 08:49] VITALS: BP 114/72; PULSE 67; RESP 16; TEMP 36.8; O2SAT 100; BMI 40.4
== END 2025-03-02 09:53 | disposition home or self-care (01) ==
LOC: HO.HMCC 08:19
PROVIDERS: PCP Internal Medicine; Visit Provider Internal Medicine
DX: Z00.00 Encounter for general adult medical examination without abnormal findings (principal); E66.9 Obesity, unspecified; Z68.41 Body mass index [BMI] 40.0-44.9, adult; R74.8 Abnormal levels of other serum enzymes; Z15.01 Genetic susceptibility to malignant neoplasm of breast; Z15.02 Genetic susceptibility to malignant neoplasm of ovary; Z15.09 Genetic susceptibility to other malignant neoplasm; Z86.39 Personal history of other endocrine, nutritional and metabolic disease

== ENCOUNTER → 2025-03-02 08:18 | Outpatient (BNVA) | payer OTHER, SELFPAY | PROVIDERS: PCP Internal Medicine; Visit Provider Internal Medicine | DX: Z00.01 Encounter for general adult medical examination with abnormal findings (principal); E66.9 Obesity, unspecified; Z68.41 Body mass index [BMI] 40.0-44.9, adult; R74.8 Abnormal levels of other serum enzymes; Z15.01 Genetic susceptibility to malignant neoplasm of breast; Z15.02 Genetic susceptibility to malignant neoplasm of ovary; Z86.39 Personal history of other endocrine, nutritional and metabolic disease | CPT/HCPCS: 96127; 99395 ==

== ENCOUNTER 2025-04-18 08:32 | Outpatient (REF) | payer OTHER, SELFPAY ==
--- OUTSIDE RECORDS SUMMARY | 2025-04-18 08:49 | XMS_ITS | Clinical Summary ---
Author Organization [facility] [place] [address] Care Team Providers Care Dairy Farm Supervisor Name Role Phone Cam Harvey MD Primary Care Provider [phone] Social History Tobacco Use Types Packs/Day Years [...] age to complete this topic Care Teams Dairy Farm Supervisor Relationship Specialty Start Date End Date Cam Harvey MD [address] [place] [address] [address] [place] PCP - General Internal Medicine 08/28/16
[2025-04-18 10:52] LABS: Alanine Aminotransferase 25 U/L (0-31); Aspartate Amino Transferase 25 U/L (5-31); Cholesterol 136 mg/dL (<200); HDL Cholesterol 51 mg/dL (>40); LDL Cholesterol Calculated 74 mg/dL (<100); Triglycerides 59 mg/dL (<150)
[2025-04-18 11:11] LABS: TSH reflex Free T4 1.82 uIU/mL (0.32-4.0); Vitamin D 25-OH Total 29.3 ng/mL (>30)
[2025-04-19 18:09] LABS: Thyroid Peroxidase Antibodies <1 IU/mL (<9)
== END 2025-04-18 08:33 | disposition home or self-care (01) ==
LOC: HO.HMGCLDS 08:32
PROVIDERS: PCP Internal Medicine; Visit Provider Internal Medicine
DX: Z00.01 Encounter for general adult medical examination with abnormal findings (principal); R74.8 Abnormal levels of other serum enzymes; Z15.01 Genetic susceptibility to malignant neoplasm of breast; Z15.02 Genetic susceptibility to malignant neoplasm of ovary; Z15.09 Genetic susceptibility to other malignant neoplasm; Z86.39 Personal history of other endocrine, nutritional and metabolic disease; E66.9 Obesity, unspecified
CPT/HCPCS: 36415; 80061; 82306; 84443; 84450; 84460; 86376